=== PATIENT | female | born 1930 | race Caucasian/White ===

== ENCOUNTER 2019-06-13 08:14 | Inpatient (IN) | payer OTHER ==
[2019-06-13] MEDS ORDERED: NITROGLYCERIN (SL) 0.4 MG TAB SL (08:30)
[2019-06-13 08:34] LABS: ADD MAN DIFF? NO
[2019-06-13 08:36] LABS: BASOPHIL # 0.1 10^3/ul (0.0-0.1); BASOPHILS % 1.3 % (0.0-2.0); EOSINOPHILS # 0.2 10^3/ul (0.0-0.5); EOSINOPHILS % 4.6 % (0.0-7.0); HEMATOCRIT 32.6 % (37.0-47.0); HEMOGLOBIN 10.1 g/dl (12.0-16.0); LYMPHOCYTES # 1.4 10^3/ul (0.8-2.9); LYMPHOCYTES % 29.4 % (15.0-51.0); MEAN CORPUSCULAR HEMOGLOBIN 28.8 pg (29.0-33.0); MEAN CORPUSCULAR VOLUME 92.9 fl (82.0-101.0); MEAN PLATELET VOLUME 10.3 fl (7.4-10.4); MONOCYTE # 0.6 10^3/ul (0.3-0.9); MONOCYTES % 11.9 % (0.0-11.0); NEUTROPHIL # 2.5 10^3/ul (1.6-7.5); NEUTROPHILS % 52.6 % (39.0-77.0); PLATELET COUNT 154 10^3/UL (140-415); RED BLOOD COUNT 3.51 10^6/ul (4.20-5.40); RED CELL DISTRIBUTION WIDTH 14.6 % (11.5-14.5)
[2019-06-13 08:36] LABS: WHITE BLOOD COUNT 4.8 10^3/ul (4.8-10.8)
[2019-06-13] MEDS: NITROGLYCERIN 2% 1 GM OINT PKT TD (08:40)
[2019-06-13 08:54] LABS: ANION GAP 8 (5-13); BLOOD UREA NITROGEN 22 mg/dl (7-20); CALCIUM 9.1 mg/dl (8.4-10.2); CARBON DIOXIDE 22 mmol/L (21-31); CHLORIDE 110 mmol/L (97-110); CREATININE 1.07 mg/dl (0.44-1.00); GLUCOSE 103 mg/dl (70-220); POTASSIUM 4.1 mmol/L (3.5-5.1); SODIUM 140 mmol/L (135-144)
[2019-06-13 09:06] LABS: TROPONIN-I < 0.012 ng/ml (0.000-0.120)
[2019-06-13] MEDS ORDERED: ONDANSETRON 4 MG INJ IV ×2 (11:00→15:00)
[2019-06-13] MEDS ORDERED: ACETAMINOPHEN 325 MG TAB PO ×2 (11:00→15:00)
[2019-06-13 14:55] LABS: CREATINE KINASE 34 IU/L (23-200)
[2019-06-13] MEDS ORDERED: NACL 0.9% 3 ML SYG IV (15:00)
[2019-06-13] MEDS ORDERED: HYDROCODONE/APAP (5/325) TAB PO (15:00)
[2019-06-13 15:04] LABS: B-TYPE NATRIURETIC PEPTIDE 6220 PG/ML (0-450)
[2019-06-13 15:07] LABS: CK INDEX 2.2; CK-MB 0.76 ng/ml (0.0-2.4); TROPONIN-I < 0.012 ng/ml (0.000-0.120)
[2019-06-13] MEDS: APIXABAN 5 MG TABLET PO (20:50)
[2019-06-13] MEDS: BENAZEPRIL 10 MG TAB PO (20:51)
[2019-06-13] MEDS: ATORVASTATIN 40 MG TAB PO (20:51)
[2019-06-13 21:09] LABS: CREATINE KINASE 37 IU/L (23-200)
[2019-06-13 21:20] LABS: CK INDEX 1.8; CK-MB 0.65 ng/ml (0.0-2.4); TROPONIN-I < 0.012 ng/ml (0.000-0.120)
[2019-06-14] MEDS: PANTOPRAZOLE (EC) 40 MG TAB PO (05:33)
[2019-06-14 07:25] LABS: CHOLESTEROL 116 mg/dl (100-200)
[2019-06-14 07:25] LABS: HDL CHOLESTEROL 56 mg/dl (33-92); LDL CHOLESTEROL,CALCULATED 44 mg/dl; TRIGLYCERIDES 79 mg/dl (0-149)
[2019-06-14 07:26] LABS: PHOSPHORUS 3.7 mg/dl (2.5-4.9)
[2019-06-14 07:26] LABS: MAGNESIUM 2.1 mg/dl (1.7-2.5)
[2019-06-14] MEDS ORDERED: NITROGLYCERIN 2% 1 GM OINT PKT (08:37)
[2019-06-14] MEDS: ASPIRIN 81 MG TAB PO (08:45)
[2019-06-14] MEDS: BENAZEPRIL 10 MG TAB PO ×2 (08:45→21:00)
[2019-06-14] MEDS: APIXABAN 5 MG TABLET PO ×2 (08:45→21:18)
[2019-06-14] MEDS: NITROGLYCERIN 2% 1 GM OINT PKT TD (08:46)
[2019-06-14] MEDS ORDERED: FUROSEMIDE 20 MG INJ IV (09:00)
[2019-06-14] MEDS ORDERED: FUROSEMIDE 20 MG INJ (11:13)
[2019-06-14] MEDS: FUROSEMIDE 20 MG INJ IV (11:30)
[2019-06-14] MEDS: REGADENOSON 0.4 MG/5 ML SYG (14:10)
[2019-06-14] MEDS: ATORVASTATIN 40 MG TAB PO (21:18)
[2019-06-15 04:44] LABS: ADD UMIC YES; UR ASCORBIC ACID NEGATIVE (NEGATIVE); UR BACTERIA MANY /HPF (NONE SEEN); UR BILIRUBIN (Dip) NEGATIVE (NEGATIVE); UR BLOOD (Dip) 2+ mg/dL (NEGATIVE); UR CLARITY SLIGHTLY CLOUDY (CLEAR); UR COLOR YELLOW (YELLOW); UR GLUCOSE (Dip) NEGATIVE (NEGATIVE); UR KETONES (Dip) NEGATIVE (NEGATIVE); UR LEUKOCYTE ESTERASE (Dip) 1+ Leu/ul (NEGATIVE); UR MUCUS FEW /HPF (NONE SEEN); UR NITRITE (Dip) POSITIVE (NEGATIVE); UR RBC 2 /HPF (0-5); UR SPECIFIC GRAVITY (Dip) 1.013 (1.003-1.030); UR SQUAMOUS EPITHELIAL CELL FEW /HPF (FEW); UR TOTAL PROTEIN (Dip) NEGATIVE (NEGATIVE); UR UROBILINOGEN (Dip) NEGATIVE (NEGATIVE); UR WBC 68 /HPF (0-5)
[2019-06-15] MEDS: PANTOPRAZOLE (EC) 40 MG TAB PO (05:39)
[2019-06-15 06:10] LABS: ADD MAN DIFF? NO
[2019-06-15 06:14] LABS: WHITE BLOOD COUNT 4.4 10^3/ul (4.8-10.8)
[2019-06-15 06:14] LABS: BASOPHILS % 0.9 % (0.0-2.0); EOSINOPHILS # 0.2 10^3/ul (0.0-0.5); EOSINOPHILS % 3.9 % (0.0-7.0); HEMATOCRIT 34.9 % (37.0-47.0); HEMOGLOBIN 10.9 g/dl (12.0-16.0); LYMPHOCYTES # 1.6 10^3/ul (0.8-2.9); LYMPHOCYTES % 35.4 % (15.0-51.0); MEAN CORPUSCULAR HEMOGLOBIN 28.2 pg (29.0-33.0); MEAN CORPUSCULAR HGB CONC 31.2 g/dl (32.0-37.0); MEAN CORPUSCULAR VOLUME 90.2 fl (82.0-101.0); MEAN PLATELET VOLUME 10.6 fl (7.4-10.4); MONOCYTE # 0.4 10^3/ul (0.3-0.9); MONOCYTES % 9.8 % (0.0-11.0); NEUTROPHIL # 2.2 10^3/ul (1.6-7.5); NEUTROPHILS % 49.8 % (39.0-77.0); PLATELET COUNT 162 10^3/UL (140-415); RED BLOOD COUNT 3.87 10^6/ul (4.20-5.40); RED CELL DISTRIBUTION WIDTH 14.7 % (11.5-14.5)
[2019-06-15 06:56] LABS: ANION GAP 5 (5-13); BLOOD UREA NITROGEN 21 mg/dl (7-20); CALCIUM 9.4 mg/dl (8.4-10.2); CARBON DIOXIDE 27 mmol/L (21-31); CHLORIDE 109 mmol/L (97-110); CREATININE 1.15 mg/dl (0.44-1.00); GLUCOSE 90 mg/dl (70-220); SODIUM 141 mmol/L (135-144)
[2019-06-15 07:21] LABS: POTASSIUM 4.2 mmol/L (3.5-5.1)
[2019-06-15 08:12] LABS: HEMOGLOBIN A1C 5.3 % (0-5.9)
[2019-06-15] MEDS: BENAZEPRIL 10 MG TAB PO ×2 (08:26→20:30)
[2019-06-15] MEDS: ASPIRIN 81 MG TAB PO (08:26)
[2019-06-15] MEDS: APIXABAN 5 MG TABLET PO ×2 (08:26→20:41)
[2019-06-15] MEDS: FUROSEMIDE 40 MG INJ IV ×2 (08:27→20:41)
[2019-06-15] MEDS ORDERED: FUROSEMIDE 40 MG INJ IV (09:00)
[2019-06-15] MEDS: LEVOFLOXACIN 500MG/D5W (PMX) 100 ML IVPB (11:11)
[2019-06-15] MEDS: ATORVASTATIN 40 MG TAB PO (20:41)
[2019-06-16] MEDS: PANTOPRAZOLE (EC) 40 MG TAB PO (06:09)
[2019-06-16 06:25] LABS: ADD MAN DIFF? NO
[2019-06-16 06:37] LABS: BASOPHIL # 0.1 10^3/ul (0.0-0.1); BASOPHILS % 1.1 % (0.0-2.0); EOSINOPHILS # 0.1 10^3/ul (0.0-0.5); EOSINOPHILS % 2.5 % (0.0-7.0); HEMATOCRIT 37.5 % (37.0-47.0); HEMOGLOBIN 11.5 g/dl (12.0-16.0); LYMPHOCYTES # 1.5 10^3/ul (0.8-2.9); LYMPHOCYTES % 28.4 % (15.0-51.0); MEAN CORPUSCULAR HEMOGLOBIN 28.5 pg (29.0-33.0); MEAN CORPUSCULAR HGB CONC 30.7 g/dl (32.0-37.0); MEAN CORPUSCULAR VOLUME 93.1 fl (82.0-101.0); MEAN PLATELET VOLUME 10.5 fl (7.4-10.4); MONOCYTE # 0.6 10^3/ul (0.3-0.9); MONOCYTES % 11.6 % (0.0-11.0); NEUTROPHILS % 56.2 % (39.0-77.0); PLATELET COUNT 175 10^3/UL (140-415); RED BLOOD COUNT 4.03 10^6/ul (4.20-5.40); RED CELL DISTRIBUTION WIDTH 14.4 % (11.5-14.5)
[2019-06-16 06:37] LABS: WHITE BLOOD COUNT 5.3 10^3/ul (4.8-10.8)
[2019-06-16 07:10] LABS: IRON 42 ug/dl (35-150)
[2019-06-16 07:19] LABS: % IRON SATURATION 12 % SAT (22-52); TOTAL IRON BINDING CAPACITY 349 ug/dl (241-421)
[2019-06-16 07:23] LABS: ANION GAP 8 (5-13); BLOOD UREA NITROGEN 28 mg/dl (7-20); CALCIUM 9.4 mg/dl (8.4-10.2); CARBON DIOXIDE 27 mmol/L (21-31); CHLORIDE 104 mmol/L (97-110); CREATININE 1.29 mg/dl (0.44-1.00); GLUCOSE 89 mg/dl (70-220); POTASSIUM 3.5 mmol/L (3.5-5.1); SODIUM 139 mmol/L (135-144)
[2019-06-16] MEDS: BENAZEPRIL 10 MG TAB PO ×2 (08:10→20:06)
[2019-06-16] MEDS: ASPIRIN 81 MG TAB PO (08:10)
[2019-06-16] MEDS: FUROSEMIDE 40 MG INJ IV (08:10)
[2019-06-16] MEDS: APIXABAN 5 MG TABLET PO ×2 (08:10→21:25)
[2019-06-16] MEDS: LEVOFLOXACIN 250MG/D5W (PMX) 50 ML IVPB (10:58)
[2019-06-16] MEDS: POLYSACCHARIDE IRON COMPLEX CAP PO ×2 (15:32→21:25)
[2019-06-16] MEDS: FUROSEMIDE 40 MG TAB PO (17:44)
[2019-06-16] MEDS: ATORVASTATIN 40 MG TAB PO (21:25)
[2019-06-17] MEDS: PANTOPRAZOLE (EC) 40 MG TAB PO (05:40)
[2019-06-17] MEDS: FUROSEMIDE 40 MG TAB PO (05:43)
[2019-06-17] MEDS: BENAZEPRIL 10 MG TAB PO (09:00)
[2019-06-17] MEDS: ASPIRIN 81 MG TAB PO (09:48)
[2019-06-17] MEDS: POLYSACCHARIDE IRON COMPLEX CAP PO ×2 (09:48→21:19)
[2019-06-17] MEDS: APIXABAN 5 MG TABLET PO ×2 (09:49→21:19)
[2019-06-17] MEDS: LEVOFLOXACIN 250MG/D5W (PMX) 50 ML IVPB (12:02)
[2019-06-17] MEDS: ATORVASTATIN 40 MG TAB PO (21:19)
[2019-06-18] MEDS: PANTOPRAZOLE (EC) 40 MG TAB PO (05:24)
[2019-06-18 06:02] LABS: ANION GAP 7 (5-13); BLOOD UREA NITROGEN 39 mg/dl (7-20); CALCIUM 9.2 mg/dl (8.4-10.2); CARBON DIOXIDE 29 mmol/L (21-31); CHLORIDE 101 mmol/L (97-110); CREATININE 1.47 mg/dl (0.44-1.00); GLUCOSE 87 mg/dl (70-220); SODIUM 137 mmol/L (135-144)
[2019-06-18 08:27] LABS: POTASSIUM 3.4 mmol/L (3.5-5.1)
[2019-06-18] MEDS ORDERED: BENAZEPRIL 10 MG TAB PO (09:00)
[2019-06-18] MEDS ORDERED: FUROSEMIDE 40 MG TAB PO (09:00)
[2019-06-18] MEDS: APIXABAN 5 MG TABLET PO ×2 (10:50→21:48)
[2019-06-18] MEDS: POLYSACCHARIDE IRON COMPLEX CAP PO ×2 (10:50→21:48)
[2019-06-18] MEDS: ASPIRIN 81 MG TAB PO (10:50)
[2019-06-18] MEDS: POTASSIUM CHLORIDE (SR) 20 MEQ TAB PO (10:56)
[2019-06-18] MEDS: LEVOFLOXACIN 250MG/D5W (PMX) 50 ML IVPB (10:56)
[2019-06-18] MEDS: ATORVASTATIN 40 MG TAB PO (21:47)
[2019-06-19] MEDS: PANTOPRAZOLE (EC) 40 MG TAB PO (06:17)
[2019-06-19] MEDS: LEVOFLOXACIN 250 MG TAB PO (06:17)
[2019-06-19] MEDS: APIXABAN 5 MG TABLET PO ×2 (08:54→21:08)
[2019-06-19] MEDS: POLYSACCHARIDE IRON COMPLEX CAP PO ×2 (08:54→21:08)
[2019-06-19] MEDS: ASPIRIN 81 MG TAB PO (08:54)
[2019-06-19 10:12] LABS: ADD UMIC NO; UR ASCORBIC ACID NEGATIVE (NEGATIVE); UR BILIRUBIN (Dip) NEGATIVE (NEGATIVE); UR BLOOD (Dip) NEGATIVE (NEGATIVE); UR CLARITY CLEAR (CLEAR); UR COLOR YELLOW (YELLOW); UR GLUCOSE (Dip) NEGATIVE (NEGATIVE); UR KETONES (Dip) NEGATIVE (NEGATIVE); UR LEUKOCYTE ESTERASE (Dip) NEGATIVE Leu/ul (NEGATIVE); UR NITRITE (Dip) NEGATIVE (NEGATIVE); UR SPECIFIC GRAVITY (Dip) 1.014 (1.003-1.030); UR TOTAL PROTEIN (Dip) NEGATIVE (NEGATIVE); UR UROBILINOGEN (Dip) NEGATIVE (NEGATIVE)
[2019-06-19 10:18] LABS: SODIUM,URINE RANDOM < 13 mmol/L (30-90)
[2019-06-19] MEDS: ATORVASTATIN 40 MG TAB PO (21:08)
[2019-06-19] MEDS: ZOLPIDEM 5 MG TAB PO (23:46)
[2019-06-20] MEDS: PANTOPRAZOLE (EC) 40 MG TAB PO (06:27)
[2019-06-20] MEDS: LEVOFLOXACIN 250 MG TAB PO (06:27)
[2019-06-20 06:28] LABS: ALANINE AMINOTRANSFERASE 18 IU/L (13-69); ALBUMIN 3.3 g/dl (3.3-4.9); ALBUMIN/GLOBULIN RATIO 1.17; ALKALINE PHOSPHATASE 63 IU/L (42-121); ANION GAP 5 (5-13); ASPARTATE AMINO TRANSFERASE 23 IU/L (15-46); BILIRUBIN,INDIRECT 1.3 mg/dl (0-1.1); BILIRUBIN,TOTAL 1.3 mg/dl (0.2-1.3); BLOOD UREA NITROGEN 28 mg/dl (7-20); CALCIUM 9.3 mg/dl (8.4-10.2); CARBON DIOXIDE 28 mmol/L (21-31); CHLORIDE 104 mmol/L (97-110); CREATININE 1.16 mg/dl (0.44-1.00); GLUCOSE 87 mg/dl (70-220); SODIUM 137 mmol/L (135-144); TOTAL PROTEIN 6.1 g/dl (6.1-8.1)
[2019-06-20] MEDS: ASPIRIN 81 MG TAB PO (08:09)
[2019-06-20] MEDS: POLYSACCHARIDE IRON COMPLEX CAP PO (08:09)
[2019-06-20] MEDS: APIXABAN 5 MG TABLET PO (08:10)
== END 2019-06-20 18:05 | DRG 292 ==
LOC: E/R 08:14 → 6WM 10:38
DX: I11.0 Hypertensive heart disease with heart failure (principal); N39.0 Urinary tract infection, site not specified; N17.9 Acute kidney failure, unspecified; F03.90 Unspecified dementia, unspecified severity, without behavioral disturbance, psychotic disturbance, mood disturbance, and anxiety; D64.9 Anemia, unspecified; I45.10 Unspecified right bundle-branch block; I45.4 Nonspecific intraventricular block; I50.23 Acute on chronic systolic (congestive) heart failure; R07.9 Chest pain, unspecified; I25.10 Atherosclerotic heart disease of native coronary artery without angina pectoris; E78.5 Hyperlipidemia, unspecified; R09.02 Hypoxemia; Z79.4 Long term (current) use of insulin; Z79.02 Long term (current) use of antithrombotics/antiplatelets; Z95.0 Presence of cardiac pacemaker
CPT/HCPCS: 36415; 71045; 78452; 80048; 80053; 80061; 81001; 81003; 82550; 82553; 83036; 83540; 83735; 83880; 84100; 84300; 84484; 85025; 87086; 93005; 93017; 93306; 97162; 99285-25; G0378